=== PATIENT | female | born 1960 | race Caucasian/White ===

== ENCOUNTER 2018-04-11 04:51 | Emergency (ER) | END 2018-04-11 07:14 | disposition home or self-care (01) ==

== ENCOUNTER 2018-05-21 05:14 | Emergency (ER) | END 2018-05-21 11:00 | disposition short-term general hospital (02) ==

== ENCOUNTER 2018-07-29 00:17 | Emergency (ER) | END 2018-07-29 08:18 | disposition short-term general hospital (02) ==